=== PATIENT | male | born 1965 | race Caucasian/White ===

== ENCOUNTER 2021-04-25 08:00 | Observation (INO) ==
[2021-04-25] MEDS ORDERED: Lactated Ringers 1000 ml BAG 1,000 ML IV ONE ×2 (08:08→10:19)
[2021-04-25 08:43] LABS: ABS Basophils 0.1 10^3/ul (0-0.2); ABS Eosinophils 0.1 10^3/ul (0-0.6); ABS Monocytes 1.1 10^3/ul (0-0.8); ABS Neutrophils 8.7 10^3/ul (1.5-7.7); Eosinophil % 0.5 %; Hematocrit 46 % (42-52); Hemoglobin 15.5 g/dL (14.0-18.0); Lymphocyte % 16.6 %; Mean Corpuscular HGB Conc 34 g/dL (31-36); Mean Corpuscular Hemoglobin 31 pg (27-31); Mean Corpuscular Volume 92 fL (80-94); Mean Platelet Volume 8.9 fL (7.4-10.4); Nucleated Red Blood Cells % 0.1; Platelet Count 241 10^3/uL (150-450); Red Blood Count 5.01 10^6 /uL (4.18-5.48); Red Cell Distribution Width 13 % (10-15); White Blood Count 11.8 10^3/uL (3.5-10.8)
[2021-04-25 08:57] LABS: INR 1.05 (0.86-1.15)
[2021-04-25 09:01] LABS: Albumin 4.3 g/dL (3.2-5.2); Albumin/Globulin Ratio 1.3 (1-3); C Reactive Protein 44.57 mg/L (<8.01); Calcium 9.8 mg/dL (8.6-10.3); Globulin 3.2 g/dL (2-4); Total Bilirubin 1.9 mg/dL (0.2-1.0); Total Protein 7.5 g/dL (6.4-8.9); eGFR CKD-EPI 81.4 (>60)
[2021-04-25] MEDS ORDERED: Iohexol 300 (CONTRAST) 10 ML SDV IV ONE (09:09)
[2021-04-25] MEDS ORDERED: Piperacillin/Tazobac ADVAN 3.375 GM in NS 0.9% 100 ml BAG 100 ML IVPB ONE (10:19)
[2021-04-25 10:48] LABS: Urine Appearance Clear; Urine Bilirubin Negative (Negative); Urine Blood Negative (Negative); Urine Color Straw; Urine Glucose Negative (Negative); Urine Ketones Negative (Negative); Urine Nitrite Negative (Negative); Urine Protein Negative (Negative); Urine Specific Gravity 1.009 (1.002-1.030); Urine Urobilinogen Negative (Negative)
[2021-04-25] MEDS ORDERED: Midazolam 2 mg/2 ml VIAL 1 mg/ml 2 ml VIAL (2 mg) ONE (13:57)
[2021-04-25] MEDS ORDERED: fentaNYL 250 mcg/5 ml 50 MCG/ML 5 ml VIAL (250 MCG) ONE (13:57)
[2021-04-25] MEDS ORDERED: Propofol 10 MG/ML 20 ML BTL ONE (13:58)
[2021-04-25] MEDS ORDERED: Lidocaine 2% PF 5 ML VIAL ONE (13:59)
[2021-04-25] MEDS ORDERED: Rocuronium 50 mg VIAL 10 mg/ml 5 ml VIAL (50 mg) ONE (14:06)
[2021-04-25] MEDS ORDERED: Artificial Tear OPHTH.OINT 3.5 GM ONE (14:08)
[2021-04-25] MEDS ORDERED: Bupivacaine 0.25% SDV 30 ML ONE (14:09)
[2021-04-25] MEDS ORDERED: Dexamethasone IV 4 MG/ML VIAL 1 ml VIAL ONE (15:35)
[2021-04-25] MEDS ORDERED: Acetaminophen IV 1 GM/100ML 100 ML IV ONE (15:35)
[2021-04-25] MEDS ORDERED: Ondansetron 4 mg VIAL 2 MG/ML 2 ml VIAL ONE (15:35)
[2021-04-25] MEDS ORDERED: Ondansetron 4 mg VIAL 2 MG/ML 2 ml VIAL IV PRN (17:46)
[2021-04-25] MEDS ORDERED: HYDROmorphone 0.5 MG/0.5 ML SYRINGE IV SLOW PU PRN (17:46)
[2021-04-25 18:29] LABS: Hematocrit 39 % (42-52); Hemoglobin 13.2 g/dL (14.0-18.0); Mean Corpuscular HGB Conc 34 g/dL (31-36); Mean Corpuscular Hemoglobin 31 pg (27-31); Mean Corpuscular Volume 92 fL (80-94); Mean Platelet Volume 8.7 fL (7.4-10.4); Platelet Count 222 10^3/uL (150-450); Red Blood Count 4.26 10^6 /uL (4.18-5.48); Red Cell Distribution Width 14 % (10-15); White Blood Count 14.8 10^3/uL (3.5-10.8)
[2021-04-25] MEDS ORDERED: diPHENhydraMINE 25 mg TAB PO ONE (23:00)
[2021-04-26 06:32] LABS: ABS Lymphocytes 0.9 10^3/ul (1.0-4.8); ABS Monocytes 0.8 10^3/ul (0-0.8); ABS Neutrophils 11.8 10^3/ul (1.5-7.7); Hematocrit 34 % (42-52); Hemoglobin 11.6 g/dL (14.0-18.0); Lymphocyte % 6.9 %; Mean Corpuscular HGB Conc 34 g/dL (31-36); Mean Corpuscular Hemoglobin 31 pg (27-31); Mean Corpuscular Volume 92 fL (80-94); Mean Platelet Volume 9.1 fL (7.4-10.4); Platelet Count 202 10^3/uL (150-450); Red Blood Count 3.73 10^6 /uL (4.18-5.48); Red Cell Distribution Width 13 % (10-15); White Blood Count 13.5 10^3/uL (3.5-10.8)
[2021-04-26 06:47] LABS: Calcium 8.8 mg/dL (8.6-10.3); eGFR CKD-EPI 76.3 (>60)
[2021-04-26 11:52] VITALS: BP 124/81
== END 2021-04-26 12:15 | disposition home or self-care (01) ==
LOC: ED 08:00 → SSU 08:00 → INTOOBSV 14:10 → SUATTDRO 14:10 → SSU 14:10 → ED 14:10 → UNDODEPER 14:10
PROVIDERS: ADMIT Hospitalist; ATTEND Surgery Surgical Critical Care